=== PATIENT | female | born 1995 | race Caucasian/White ===

== ENCOUNTER 2017-04-23 23:14 | Emergency (ER) | payer SELFPAY ==
[~2017-04-23] VITALS: Ht 165.1 cm; Wt 110.7 kg
[2017-04-23 23:21] VITALS: BP 139/90
--- NOTE | 2017-04-23 23:35 | NUR ---
PT TAKEN TO [facility]
--- NOTE | 2017-04-23 23:51 | NUR ---
Dr. Brunson evaluating patient at bedside.
[2017-04-23] MEDS ORDERED: KETOROLAC 30 MG/ML VIAL IM ONE (23:55)
[2017-04-23] MEDS ORDERED: DEXAMETHASONE 10 MG/ML VIAL PO ONE (23:55)
[2017-04-23] MEDS ORDERED: CLINDAMYCIN 600 MG/4 ML VIAL IM ONE (23:55)
--- NOTE | 2017-04-24 00:08 | NUR ---
PT MOVED TO BED 3
[2017-04-24] MEDS ORDERED: LIDOCAINE/EPI 1% 1:100000 20 ML VIAL INJ ONE (02:00)
[2017-04-24 02:07] VITALS: BP 127/71
--- NOTE | 2017-04-24 02:07 | NUR ---
Patient discharged with v/s stable. Written and verbal after care instructions given and explained. Patient alert, oriented and verbalized understanding of instructions. Ambulatory with steady gait. All questions addressed prior to discharge. ID band removed. Patient advised to follow up with PMD. Rx of Naprosyn, Tylenol #3, and Augmentin given. Patient educated on indication of medication including possible reaction and side effects. Opportunity to ask questions provided and answered.
== END 2017-04-24 02:07 | disposition home or self-care (01) ==
LOC: MED 23:14
DX: J36 Peritonsillar abscess (principal)
CPT/HCPCS: 10021; 96372; 99284; J1100; J1885; J2001; J3490

== ENCOUNTER 2022-06-06 06:05 | Emergency (ER) | payer SELFPAY ==
[~2022-06-06] VITALS: Ht 165.1 cm; Wt 78.9 kg
[2022-06-06 06:10] VITALS: BP 127/82
--- NOTE | 2022-06-06 06:13 | NUR ---
TO BED AMBULATORY
[2022-06-06] MEDS ORDERED: NACL 0.9% 1,000 ML IV ONE (06:25)
[2022-06-06] MEDS ORDERED: AMPICILLIN/SULBACTAM 3 GM in NACL 0.9% 100 ML IV ONE (06:25)
[2022-06-06] MEDS ORDERED: DEXAMETHASONE 4 MG/ML VIAL IVP ONE (06:25)
[2022-06-06] MEDS ORDERED: MORPHINE SULFATE 4 MG/ML SYR IVP ONE (06:30)
[2022-06-06] MEDS ORDERED: ONDANSETRON 4 MG/2 ML VIAL IVP ONE (06:30)
--- NOTE | 2022-06-06 06:33 | NUR ---
RECEIVED PT IN ROOM 9, HERE FOR A SORETHROAT AND THAT HER "LYMPHNODES ARE SWOLLEN". PT DENIES FEVER OR CHILLS, OR DIFFICULTY BREATHING. ER MD AT BEDSIDE TO EVALUATE PT. WILL AWAIT FOR ORDERS.
[2022-06-06] MEDS ORDERED: AMPICILLIN/SULBACTAM 3 GM VIAL ONE (07:00)
--- NOTE | 2022-06-06 07:08 | NUR ---
PT BACK FROM CT. PT IS GOWNED AND CONNECTED TO ER MONITOR. DISCUSSED TO PT MEDS THAT WAS ORDERED BY ER MD. PT REPORTS THAT SHE FORGOT TO DISCLOSE TO THE DOCTOR THAT SHE IS ON ACYCLOVIR FOR GENITAL HERPES AND IS CONCERNED OF MED INTERACTIONS. THIS WAS RELAYED TO ER MD AND OK MEDS TO BE ADMINISTERED TO PT BUT CANCELLED MORPHINE AND WILL GIVE PT TORADOL INSTEAD WHEN SERUM TEST IS BACK NEGATIVE. IV STARTED, FLUIDS INFUSING, PT MEDICATED WITH DECADRON AND UNASYN ORDERED. PT REFUSED ZOFRAN AND REPORTS THAT SHE HAS NO N/V AT THIS TIME.
[2022-06-06 07:13] LABS: BASOPHILS # (AUTO) 0.1 K/uL (0.00-0.22); BASOPHILS % (AUTO) 0.5 % (0.0-2.0); EOSINOPHILS % (AUTO) 0.1 % (0.0-4.0); HEMATOCRIT 36.7 % (36-48); HEMOGLOBIN 11.9 g/dL (12.0-16.0); LYMPHOCYTES # (AUTO) 1.5 K/uL (2.5-16.5); LYMPHOCYTES % (AUTO) 12.4 % (20.5-51.1); MEAN CORPUSCULAR HEMOGLOBIN 28 pg (27-31); MEAN CORPUSCULAR HGB CONC 32 g/dL (33-37); MEAN CORPUSCULAR VOLUME 86.8 fL (80-94); MONOCYTES # (AUTO) 0.8 K/uL (0.8-1.0); MONOCYTES % (AUTO) 7.2 % (1.7-9.3); NEUTROPHILS # (AUTO) 9.4 K/uL (1.8-7.7); NEUTROPHILS % (AUTO) 79.8 % (42.2-75.2); PLATELET COUNT (AUTO) 221 K/uL (140-450); RED BLOOD CELL COUNT(AUTO) 4.22 MIL/uL (4.20-5.40); RED CELL DISTRIBUTION WIDTH 14.4 % (11.6-13.7); WHITE BLOOD COUNT (AUTO) 11.8 K/uL (4.8-10.8)
--- NOTE | 2022-06-06 07:21 | NUR ---
NKE REPORT GIVEN TO DEANN COOK.
--- NOTE | 2022-06-06 07:29 | NUR ---
RECEIVED REPORT FROM JAYME [facility] AT THIS TIME.
--- NOTE | 2022-06-06 07:45 | NUR ---
PATIENT RESTING IN BED WITH EYES OPEN, REPORTS RELIEF OF PAIN AT THIS TIME. PATIENT ON BEDSIDE MECHANICAL FITTER, ALL NEEDS MET AT THIS TIME.
[2022-06-06 08:11] LABS: ALBUMIN 3.2 g/dL (3.4-5.0); ANION GAP 10.4 (8-16); CARBON DIOXIDE 26.6 mmol/L (21-32); CREATININE 0.7 mg/dL (0.6-1.3); TOTAL BILIRUBIN 0.6 mg/dL (0.0-1.0)
[2022-06-06] MEDS ORDERED: LIDOCAINE/EPI 1% 1:100000 20 ML VIAL INJ ONE (09:25)
[2022-06-06] MEDS ORDERED: LIDOCAINE 2% 100 MG/5 ML UJET TP ONE (09:30)
--- NOTE | 2022-06-06 10:01 | NUR ---
DR. P[facility]TER [facility] FOR I&D PROCEDURE
[2022-06-06] MEDS ORDERED: AMOX-1230 PO ×2 (11:45→12:14)
[2022-06-06] MEDS ORDERED: IBUP-2213 PO ×2 (11:46→12:14)
[2022-06-06] MEDS ORDERED: [UNRECOGNIZED DRUG - OTHER] TP (11:46)
[2022-06-06 12:04] VITALS: BP 110/64
--- NOTE | 2022-06-06 12:04 | NUR ---
Patient discharged with v/s stable. Written and verbal after care instructions given FOR PERITONSILLAR ABSCESS and explained. Patient alert, oriented and verbalized understanding of instructions. Ambulatory with steady gait. All questions addressed prior to discharge. ID band removed. Patient advised to follow up with PMD. Rx of LIDOCAINE, AMOX-CLAV, AND IBUPROFEN given. Patient educated on indication of medication including possible reaction and side effects. Opportunity to ask questions provided and answered.
[2022-06-06] MEDS ORDERED: XYLGEL TP (12:14)
== END 2022-06-06 12:04 | disposition home or self-care (01) ==
LOC: MED 06:05
DX: J36 Peritonsillar abscess (principal); M54.2 Cervicalgia; R13.10 Dysphagia, unspecified; Z79.899 Other long term (current) drug therapy
CPT/HCPCS: 36415; 42700; 70490; 80053; 84702; 85025; 96365; 96375; 99285; J0295; J1100; J2001; J7030; J2405

== ENCOUNTER 2023-12-03 18:19 | Emergency (ER) | payer OTHER ==
[~2023-12-03] VITALS: Ht 162.6 cm; Wt 90.7 kg
[~2023-12-03 18:19] MED LIST: AMOX-1230 PO; IBUP-2213 PO; XYLGEL TP; [UNRECOGNIZED DRUG - OTHER] TP
[2023-12-03 18:34] VITALS: BP 141/89; PULSE 98; RESP 18; TEMP 97; O2SAT 98
[2023-12-03] MEDS ORDERED: MECLIZINE 25 MG TAB PO ONE (19:45)
[2023-12-03] MEDS ORDERED: ACETAMINOPHEN 325 MG TAB PO ONE (19:45)
[2023-12-03] MEDS ORDERED: MECL-303 PO (20:18)
[2023-12-03] MEDS ORDERED: ONDA-188 PO (20:18)
[2023-12-03] MEDS ORDERED: [UNRECOGNIZED DRUG - CODE] PO (20:18)
[2023-12-03] MEDS ORDERED: MECLIZINE 25 MG TAB PO STA (20:19)
[2023-12-03] MEDS ORDERED: ACETAMINOPHEN EXTRA STRENGTH 500 MG TAB PO STA (20:19)
== END 2023-12-03 21:34 | disposition home or self-care (01) ==
LOC: MED 18:19
DX: H81.11 Benign paroxysmal vertigo, right ear (principal); R03.0 Elevated blood-pressure reading, without diagnosis of hypertension; Z79.899 Other long term (current) drug therapy
CPT/HCPCS: 99282; J8597